=== PATIENT | male | born 1975 | race Caucasian/White ===

== ENCOUNTER → 2021-01-24 07:54 | Outpatient (CLI) | payer OTHER, SELFPAY ==
[2021-01-24] VITALS (11 sets, daily range): BP systolic 106–120; BP diastolic 57–86; PULSE 61–108; RESP 15–21; TEMP 36.5; O2SAT 77–100; BMI 22.6
--- NOTE | 2021-01-24 | ASPIGT_PTH ---
PATIENT: SUDEEP KNAPP LOC: [place] U#:[id number] AGE/SX: 50/M ROOM: RE01/24/[address]: Dr. Drew Morrison DO : 1975 BED: DIS: SPEC #: [id number] RECD: 01/24/21 09:34 STATUS: DANITZA EMIR #: [id number] CHAPO: 01/24/21 00:[address]: Drew Morrison DEPT: SURGICAL PATHOLOGY RECD BY: Lane Buitrago ENTERED: 01/24/21 09:35 SP TYPE: ASP RAD OTHR DR: Dr. Winston Smith MD Tissues: Vertebra, NOS Procedures: FNA Specimen Adequacy Special Stain Group II Surgery Specimen Level IV Imprint (control) HEADER OPERATION: CT-guided paravertebral mass biopsy PRE-OP DIAGNOSIS: Left-sided paravertebral mass L1 TISSUE SUBMITTED: Left paravertebral mass 18 gauge x5 MICROSCOPIC DIAGNOSIS Left paravertebral mass, CT-guided core biopsy: Benign peripheral nerve sheath tumor, favor schwannoma (see comment). Negative for malignancy. SJ:rg 02/01/2021 COMMENT The specimen is evaluated at the time of biopsy by Dr. Avila. 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 The specimen is sent to [facility] for expert opinion, reviewed by Dr. Yanni Velasco and the above diagnosis is rendered. Immunohistochemistry ([id number]) performed here and also additional immunohistochemical stains performed at [facility] supports the above diagnosis. The complete report is viewable in the patient's EMR. This case was reviewed and diagnosis discussed with Dr. Drew Morrison on 02/02/[address] Calixto. Case has been reviewed in consultation with Dr. Calixto who concurs with the above diagnosis. IDC:AM MICROSCOPIC DESCRIPTION Slides are reviewed. GROSS DESCRIPTION Received in fixative is one container labeled with the patient's name and designated left paravertebral mass. The specimen consists of multiple irregular fragments of hussein soft tissue that in aggregate measure 2.5 x 0.3 x 0.1 cm. The specimen is totally submitted in one cassette. Two touch imprints are prepared at the time of core biopsy. / ELI:kirill 01/24/21 TC:1 CPT: 35557, 60262
--- NOTE | 2021-01-24 | IMM_PTH ---
PATIENT: SUDEEP KNAPP LOC: CT U#:[id number] AGE/SX: 50/M ROOM: RE01/24/[address]: Dr. Drew Morrison DO : 1975 BED: DIS: SPEC #: [id number] RECD: 01/25/21 11:15 STATUS: DANITZA REQ #: [id number] CHAPO: 01/24/21 00:[address]: Drew Morrison DEPT: IMMUNOHISTOCHEMISTRY RECD BY: Linda Davis ENTERED: 01/25/21 11:17 SP TYPE: IMMUNO OTHR DR: Dr. Winston Smith MD Tissues: Vertebra, NOS Procedures: SMA (add) CD31 (add) CD34 (add) CD45 (add) CK5-6 (add) CK8 (add) DESMIN (add) KI-67 (add) Vimentin (add) FACTOR VIII (add) Pankeratin (initial) MELAN-A (add) P40 (add) S-100 (add) PHYSICIAN & [address] [address] SPECIMEN INFORMATION: Tissue Source: Left paravertebral mass, biopsy Clinical Info: Left-sided paravertebral mass L1 Specimen Number: [id number] CPT code: 03055, 01904 x13 METHODOLOGY: Deparaffinized sections of prefer/formalin-fixed tissue or PAP/DQ stained slides are incubated with monoclonal/polyclonal antibodies/oligonucleotide probes. Localization is made via biotin free immunoperoxidase method. Appropriate controls are performed and reacted as expected. Results on target cell population are indicated in the following table: RESULTS: ANTIBODY / CLONE RESULT AE1-3 (AE1/AE3/PCK26) negative CK8 (95fymgY74) negative CD45 (RP2/18) negative Vimentin (V9) positive CD31 (BRANDEE/70A) negative, focally positive Factor VIII (R Ag) negative CD34 (QBEnd-10) negative Actin (1A4) negative Desmin (CE-R-11) negative Melan A (A103) negative S-100 (4C4.9) positive CK5-6 (D5 & 1684) negative P40 (BC28) negative Ki-67 (30-9) positive, low (1%) These tests were developed and their performance characteristics determined by [facility]. They may not have been cleared or approved by the U.S. Food and Drug Administration. The FDA has determined that such clearance or approval is not necessary. The above immunohistochemical/dualISH markers are ordered and reviewed by the Pathologist. INTERPRETATION: Left paravertebral mass, CT-guided core biopsy: Benign peripheral nerve sheath tumor, favor schwannoma. See comment. ELI:kirill 02/01/2021 Comment: Immunohistochemical stains performed here and additional stains performed at [facility] supports the above diagnosis. The specimen is sent to [facility] for expert opinion, reviewed by Dr. Yanni Velasco and the above diagnosis is rendered. The complete report is viewable in the patient's EMR. Case has been reviewed in consultation with Dr. Calixto who concurs with the above diagnosis. IDC:ELVIE
--- NOTE | 2021-01-24 07:56 | CT_ITS ---
HISTORY:left sided paravertebral mass of L1. TECHNIQUE: Helically acquired images were obtained of the lumbar spine. 2D reformats were reviewed. A radiation dose optimization technique was used for this scan. IV Contrast dosage and agent: 100 mL Isovue 300. # of images incl. paperwork: 253. COMPARISON: XR 01/10/2021. FINDINGS: VERTEBRAE:5 lumbar vertebral bodies. Vertebral body heights maintained. Posterior elements intact. No osteoblastic or osteolytic lesion. ALIGNMENT:No significant anterior or posterior subluxation. INTERVERTEBRAL DISCS: Mild posterior disc protrusion at L5-S1 without significant central canal stenosis. SOFT TISSUES: 2.2 x 2.6 x 2.8 cm oval mass in the left posterior musculature at the L1 level. Mild central enhancement slightly hyperdense to muscle with surrounding hypodensity relative to muscle. Fatty capping at the superior and inferior poles of the mass, which can be seen with nerve sheath tumor or myxoma. CT/Spine Lumbar WITH Contrast IMPRESSION: 2.8 cm left posterior intramuscular mass at the L1 level as above. No evidence for acute osseous abnormality in the lumbar spine. Individualized dose optimization techniques were used for this CT. at 1258 Reported and signed by: Ct Castillo MD Electronically Signed: Ct Castillo MD at 12:37 EDT Tel , Service support ,
--- NOTE | 2021-01-24 07:56 | CT_ITS ---
PROCEDURE: CT GUIDED biopsy of the left paraspinal mass. DATE: 01/24/2021. INDICATION: Male, 45 years old. Soft tissue mass in the left paraspinal muscles. PHYSICIAN: Mark Almanza M.D. RADIATION DOSAGE (If Supplied By Facility): CTDIvol = ( 8.4 ) mGy, DLP = ( 590.42 ) mGycm. Individualized dose optimization techniques were utilized. PROCEDURE: The risks, benefits, and alternatives to the procedure were explained to the patient. The specific risk of hemorrhage requiring further treatment or intervention was detailed and accepted. Follow-up instructions were discussed with the patient as well. Written informed consent was obtained. The patient was brought into the CT suite and placed in the prone position. . An appropriate entry site was identified. The overlying skin was prepped and draped in the usual sterile fashion. 1% lidocaine was administered subcutaneously for local anesthesia. Conscious sedation was performed. The patient received 2 mg of VERSED and 50 mcg of FENTANYL intravenously. Conscious sedation was started at 8:57 AM and terminated at 9:16 AM. The patient was monitored by the department nurse. Under CT guidance, a total of 5 passes were performed utilizing a 18-gauge core biopsy needle. The specimens were then placed in the appropriate fluid and transported to the laboratory for analysis. Hemostasis was obtained. The patient tolerated the procedure well without immediate complications. CT/Biopsy/Inj or Needle Placement IMPRESSION: Successful CT guided biopsy of the left paraspinal mass, as described above. The conscious sedation protocol was followed. Electronically Signed: Mark Almanza MD at 9:46 EDT , Service support ,
[2021-01-24] MEDS: Midazolam 2 MG/2 ML Syringe IV (08:57)
[2021-01-24] MEDS: fentaNYL 100 MCG/2 ML Ampul IV (08:59)
[2021-01-24] MEDS: Lidocaine 2% (20 ml mdv) 20 ML Vial INFILT (09:02)
== END | disposition home or self-care (01) ==
PROVIDERS: PCP Family Medicine; Referring Provider Orthopaedic Surgery; Visit Provider Orthopaedic Surgery
DX: D36.17 Benign neoplasm of peripheral nerves and autonomic nervous system of trunk, unspecified (principal)
CPT/HCPCS: 20206; 72132; 77012; 88172; 88305; 88313; 88341; 88342; 99156; 99157; J7040; Q9967; A4216

== ENCOUNTER 2021-07-12 05:32 | Day surgery (SDC) | payer SELFPAY, OTHER ==
--- NOTE | 2021-07-04 13:24 | EKG12_ITS ---
Test Reason : PRE OP Blood Pressure : / mmHG Vent. Rate : 084 BPM Atrial Rate : 084 BPM P-R Int : 148 ms QRS Dur : 088 ms QT Int : 342 ms P-R-T Axes : 076 041 059 degrees QTc Int : 404 ms Normal sinus rhythm Normal ECG Confirmed by SHANNA CABA, AILYN ([id number]), technical writer and editor STEPHEN MOREIRA ([id number]) on 07/05/2021 9:25:18 AM Referred By: Drew Morrison Confirmed By:AILYN OTERO MD
[2021-07-04 14:23] LABS: Absolute Lymphocyte Count 1.48 X10^3/uL (0.83-4.51); Absolute Neutrophil Count 4.7 X10^3/uL (2.0-7.7); Basophil# 0.04 X10^3/uL; Basophil% 0.6 % (0-1); Eosinophil# 0.11 X10^3/uL; Eosinophils% 1.6 % (0-5); Hematocrit 44.9 % (40-54); Hemoglobin 15.2 g/dL (13.0-16.5); Lymphocyte # 1.48 X10^3/ul (0.83-4.51); Lymphocyte % 21.8 % (19-41); Mean Corp Hgb Conc 33.9 g/dL (32-36); Mean Corpuscular Hgb 29.6 pg (27.0-32.0); Mean Corpuscular Volume 87.5 fL (80-94); Mean Platelet Vol. 8.3 fl (6.2-12.0); Monocyte# 0.45 X10^3/uL; Monocyte% 6.6 % (0-10); NRBC Flagged by Analyzer 0 % (0-5); Neutrophil % 69.1 % (47-70); Platelet Count 318 K/mm3 (150-450); RBC Distribution Width CV 12.5 % (11.6-14.6); RBC Distribution Width SD 39.9 fl (35.1-43.9); Red Blood Count 5.13 M/mm3 (4.6-6.2); White Blood Count 6.8 K/mm3 (4.4-11.0)
[2021-07-04 14:35] LABS: Magnesium 2.1 mg/dL (1.6-2.6)
[2021-07-04 14:40] LABS: Anion Gap 7 (5-15); BUN 21 mg/dL (7-18); BUN/Creat Ratio 18.4 RATIO (10-20); Calcium,Total 9.1 mg/dL (8.5-10.1); Chloride 103 mmol/L (98-107); Creatinine, Serum 1.14 mg/dL (0.70-1.30); EST Glomerular Filtration Rate 74 mL/min (>60); Est Glom Filt Rate - Afr Amer 90 mL/min (>60); Glucose 128 mg/dL (74-106); Potassium 3.6 mmol/L (3.5-5.1); Sodium Level 138 mmol/L (136-145)
[2021-07-04 15:18] LABS: HIV - WCH Non-Reactive (Nonreactive); Hepatitis B Surface Antibody Non-Reactive; Hepatitis C Antibody Non-Reactive (Nonreactive)
[2021-07-06 10:41] LABS: Hepatitis A AB, Total Negative (Negative)
--- NOTE | 2021-07-11 12:14 | PCM.HP.BLA ---
History and Physical Date of Admission: 07/12/21 [facility] [id number] [phone] OFFICE VISITDate of Service: 01/10/21 MR#:[id number]:[id number]: SUDEEP KNAPP [facility] #:[id number]:1975 Provider:Dr. Drew Morrison DOAge/Sex: 45/M [place] [place] Intake Intake Visit Reasons: Lumbar spine Allergies No Known Allergies Allergy (Verified 01/10/21 13:10) Medications calcium carbonate 500 mg calcium (1,250 mg) tablet 500 mg PO DAILY 01/10/21 [History Confirmed 01/10/21] ibuprofen 200 mg capsule 200 mg PO Q6H PRN 01/10/21 [History Confirmed 01/10/21] magnesium 200 mg tablet 200 mg PO DAILY 01/10/21 [History Confirmed 01/10/21] multivitamin with iron 1 tab PO DAILY 01/10/21 [History Confirmed 01/10/21] PFSH Surgical History Hx of hernia repair HPI Lumbar spine Details: Parts of this documentation were recorded by a scribe, this documentation accurately reflects the service provided and the decisions made by me, Dr. Drew Morrison DO 01/10/21 3565. SUDEEP KNAPP is a 45 year old M here today for Robby is a most pleasant young man 45 years old who presents in the company of his . Her name is Orelkin. Dr. Smith sent him to see me because an incidental finding on an MRI scan of his lumbar spine. The incidental finding was a mass in his left paravertebral musculature around the L1-L2 area. The patient states that he knows it has been there for quite a while perhaps even 2 or 3 years. He thinks that is probably gotten bigger. He denies any pain in the area. He does have low back pain but his lower down. He denies any lower extremity symptomatology. He denies bowel or bladder dysfunction. He denies history of unexplained weight loss night fever sweats or chills. On examination he is neurologically intact and both lower extremities with normal reflexes and no pain with extension or flexion of his lumbar spine. I can feel the mass which is just mildly tender. I explained to them that we need to know what the mass is. Because it has been there 2 or 3 years that he knows of it is more than likely some type of benign mass. However there is always a possibility of malignancy such as a fibromyxoid sarcoma, a leiomyosarcoma or a myosarcoma. I discussed the case with Dr. Wilson at the hospital and he recommended a contrast CT of the mass along with a CT directed needle biopsy. After that we can make a decision as to whether it even needs to come out depending on the biopsy findings. I will see him soon as that is done and make further recommendations. 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
[2021-07-12] VITALS (7 sets, daily range): BP systolic 94–117; BP diastolic 70–81; PULSE 58–86; RESP 16–18; TEMP 36.1–36.4; O2SAT 95–100; BMI 24.5
--- NOTE | 2021-07-12 | IMM_PTH ---
PATIENT: SUDEEP KNAPP [place] [facility] [place][id number] AGE/SX: 46/M ROOM: RE07/12/[address]: Dr. Drew Morrison DO : 1975 BED: DIS: 07/12/2021 SPEC #: [id number] RECD: 07/14/21 12:30 STATUS: DANITZA REShalom #: [id number] CHAPO: 07/12/21 00:[address]: Drew Morrison DEPT: IMMUNOHISTOCHEMISTRY RECD BY: Linda Davis ENTERED: 07/14/21 12:32 SP TYPE: IMMUNO OTHR DR: Dr. Winston Smith MD Tissues: Vertebra, NOS Procedures: SMA (add) CALPONIN-1 (add) CD31 (add) CD34 (add) CK8 (add) DESMIN (add) KI-67 (add) Vimentin (add) FACTOR VIII (add) Pankeratin (initial) MELAN-A (add) S-100 (add) PHYSICIAN & [address] [address] SPECIMEN INFORMATION: Tissue Source: Left lumbar/paravertebral mass, excisional biopsy Clinical Info: Left lumbar/paravertebral mass Specimen Number: [id number] #4 CPT code: 71078, 43095 x11 METHODOLOGY: Deparaffinized sections of prefer/formalin-fixed tissue or PAP/DQ stained slides are incubated with monoclonal/polyclonal antibodies/oligonucleotide probes. Localization is made via biotin free immunoperoxidase method. Appropriate controls are performed and reacted as expected. Results on target cell population are indicated in the following table: RESULTS: ANTIBODY / CLONE RESULT Block 4 AE1-3 (AE1/AE3/PCK26) negative CK8 (69zskcG04) negative Vimentin (V9) positive Calponin-1 (HF691L) negative CD31 (BRANDEE/70A) negative Factor VIII (R Ag) negative CD34 (QBEnd-10) negative Actin (1A4) negative Desmin (CE-R-11) negative Melan A (A103) negative S-100 (4C4.9) positive Ki-67 (30-9) positive, ~1% These tests were developed and their performance characteristics determined by [facility]. They may not have been cleared or approved by the U.S. Food and Drug Administration. The FDA has determined that such clearance or approval is not necessary. The above immunohistochemical/dualISH markers are ordered and reviewed by the Pathologist. INTERPRETATION: Left lumbar/paravertebral mass, excisional biopsy: Benign peripheral nerve sheath tumor, favor schwannoma. SJ:kirill 07/15/2021 Case has been reviewed in consultation with Dr. Calixto who concurs with the above diagnosis. IDC:AM
--- NOTE | 2021-07-12 | MASS_PTH ---
PATIENT: SUDEEP KNAPP [place] [facility] [place][id number] AGE/SX: 46/M ROOM: RE07/12/[address]: Dr. Drew Morrison DO : 1975 BED: DIS: 07/12/2021 SPEC #: [id number] RECD: 07/12/21 12:36 STATUS: DANITZA EMIR #: [id number] CHAPO: 07/12/21 00:[address]: Drew Morrison DEPT: SURGICAL PATHOLOGY RECD BY: Lane Buitrago ENTERED: 07/12/21 12:37 SP TYPE: Mass OTHR DR: Dr. Winston mSith MD Tissues: Vertebra, NOS Procedures: Surgery Specimen Level V HEADER OPERATION: ERAS, excisional biopsy paravertebral mass, lumbar 1, presumptive schwannoma PRE-OP DIAGNOSIS: Lumbar spine tumor TISSUE SUBMITTED: Left lumbar 1 paravertebral muscle mass, presumptive schwannoma MICROSCOPIC DIAGNOSIS Left lumbar/paravertebral mass, excisional biopsy: Benign peripheral nerve sheath tumor, favor schwannoma. See comment. ELI:kirill 07/15/2021 COMMENT Immunohistochemistry ([id number]) supports the above diagnosis. The tumor appears to be completely excised. Skeletal muscle tissue is also noted at the peripheral portion of the specimen. Please make reference to previous specimen ([id number]) left paravertebral mass, CT-guided core biopsy with diagnosis of ?benign peripheral nerve sheave tumor, favor schwannoma.? Case has been reviewed in consultation with Dr. Calixto who concurs with the above diagnosis. IDC:AM MICROSCOPIC DESCRIPTION Slides are reviewed. GROSS DESCRIPTION Received in fixative is one container labeled with the patient's name and designated left lumbar/ paravertebral mass, presumptive schwannoma/muscle. The specimen consists of a nodular piece of hussein soft tissue measuring 4 x 2.5 x 2 cm. No orientation is provided. The specimen is inked, serially sectioned and reveal hussein-white to slightly yellowish solid cut surfaces. Areas of hemorrhage, necrosis or cystic degeneration are not identified. The entire specimen is submitted in nine cassettes from end to another end. / ELI:kirill 07/13/2021 TC:1 CPT: 65847
[2021-07-12] MEDS: Acetaminophen 500 MG Tablet 1000 MG PO (06:37)
[2021-07-12] MEDS: Lactated Ringers 1,000 ML 15 ML IV (06:43)
[2021-07-12 06:50] LABS: Bedside Glucose 71 mg/dL (70-110)
[2021-07-12] MEDS: Cefazolin 2 GM in 0.9% Normal Saline 100 ML IV (07:23)
[2021-07-12] MEDS: THROMBIN (RECOMBINANT) 20,000 UNIT VIAL 20000 UNIT TOPICAL (08:00)
--- NOTE | 2021-07-12 10:04 | EX.PCM.DISCH ---
Discharge Instructions Diet Discharge Diet: No restrictions Activity Discharge Activity: May Not Drive (while taking narcotic pain medications.) May shower in (days): 1 Ice area for (Minutes): 20 (Ice area for 20 minutes each hour while awake) Weight Bearing Status: Weight bearing as tolerated Dressing / Incision Call your doctor if your incision/area has: Continuous Slow Oozing, Sudden Increased Bleeding, Increased Pain/ Swelling, Increased Redness and Foul Smelling Discharge Call your doctor if you observe: Fever of 101 or Higher, Coldness, Increased Pain, Numbness or Tingling and Change in Color Follow Up Care Test Results: Test results from this visit will be discussed in further detail at your follow-up appointment, if applicable. Discharge Plan Admission Primary Reason for Your Visit: Removal Mass lumbar spine Attending Provider: Drew Morrison Primary Care Provider: Winston Smith Discharge Orders/Prescriptions Prescriptions: New hydrocodone-acetaminophen 7.5-325 mg tablet 1 tab PO Q6H PRN (Reason: pain) 7 Days Qty: 30 RF: 0 Continued ibuprofen 200 mg capsule 200 mg PO Q6H PRN (Reason: Pain) RF: 0 calcium 600 mg Capsule 600 mg PO DAILY RF: 0 ferrous sulfate [iron] 325 mg (65 mg iron) Tablet 325 mg PO DAILY RF: 0 cholecalciferol (vitamin D3) [Vitamin D3] 50 mcg (2,000 unit) Capsule 50 mcg PO DAILY RF: 0 Mobility 1 tab PO/SL DAILY RF: 0 Probiotic 3 billion cell Capsule 3,000 mmu cells PO DAILY RF: 0 [place] 3-6-9 1,200 mg Capsule 1 cap PO DAILY RF: 0 Referrals / Follow Up: Winston Smith MD [Primary Care Provider] - Drew Morrison DO [STAFF PHYSICIAN] - Within 2 Weeks Disposition Disposition (needs filled in before D/C Order can be placed): Home, Self Care
--- NOTE | 2021-07-12 10:12 | PCM.OPRPT ---
Report of Operation Date of Procedure: 07/12/21 Description of Surgical Findings:: Preoperative diagnosis: Presumptive schwannoma paravertebral muscles lumbar spine Postoperative diagnosis: The same Procedure: Excisional biopsy of schwannoma lumbar spine CPT code 06318 Surgeon: Dr. Morrison assistant reading teacher: Carolina Watts NP Anesthesia: General endotracheal anesthesia administered by [facility] EBL: Minimal Drains: None Complications: None Procedure: Patient was taken to the OR where he was placed under general endotracheal anesthesia. He was then placed in the prone position on the Earnest frame. Note that a Mendoza catheter had already been inserted. The back was prepped and draped in standard fashion. Then made a longitudinal incision directly over the mass that was quite deep in the muscle. Subcutaneous tissues were incised the length of the incision. Then opened the lumbar fascia longitudinally and did part of my dissection bluntly. This was all the way down to the tumor. The tumor was identified and had a thin capsule around it and had quite a few adhesions to the paravertebral muscles surrounding it. Slowly dissected using blunt dissection mostly with tissue scissors around the mass until I removed the entire tumor in 1 piece without violating the capsule. The tumor was about 5 cm x 4 cm. This was then sent to pathology. Bleeders in the muscle were controlled with thrombin-soaked Gelfoam. Cautery was also used. Thorough irrigation was then carried out. Then approximated the muscle with 2-0 Vicryl this also tamponade of some of the vessels. Was done in running fashion with the 2-0 Vicryl. We then closed the subcutaneous tissues with 2-0 Vicryl in interrupted fashion also. The skin was approximated using skin clips. Sterile dressings were then applied. The patient tolerated the procedure well was recovered in the OR moved to his transfer cart and taken to recovery in satisfactory condition. This is the end of operative summary on James Mack. This is Dr. Morrison dictating.
[2021-07-12] MEDS: oxyCODONE 5 MG Tablet PO (10:50)
--- NOTE | 2021-08-03 16:42 | PCM.HP.BLA ---
History and Physical Date of Admission: 07/12/21 [facility] [id number] [phone] OFFICE VISITDate of Service: 01/10/21 MR#:[id number]: SUDEEP KNAPP [facility] #:[id number]:1975 Provider:Dr. Drew Morrison DOAge/Sex: 45/M [place] [place] Intake Intake Visit Reasons: Lumbar spine Allergies No Known Allergies Allergy (Verified 01/10/21 13:10) Medications calcium carbonate 500 mg calcium (1,250 mg) tablet 500 mg PO DAILY 01/10/21 [History Confirmed 01/10/21] ibuprofen 200 mg capsule 200 mg PO Q6H PRN 01/10/21 [History Confirmed 01/10/21] magnesium 200 mg tablet 200 mg PO DAILY 01/10/21 [History Confirmed 01/10/21] multivitamin with iron 1 tab PO DAILY 01/10/21 [History Confirmed 01/10/21] PFSH Surgical History Hx of hernia repair HPI Lumbar spine Details: Parts of this documentation were recorded by a scribe, this documentation accurately reflects the service provided and the decisions made by me, Dr. Drew Morrison DO 01/10/21 1003. SUDEEP KNAPP is a 45 year old M here today for Robby is a most pleasant young man 45 years old who presents in the company of his . Her name is Orelkin. Dr. Smith sent him to see me because an incidental finding on an MRI scan of his lumbar spine. The incidental finding was a mass in his left paravertebral musculature around the L1-L2 area. The patient states that he knows it has been there for quite a while perhaps even 2 or 3 years. He thinks that is probably gotten bigger. He denies any pain in the area. He does have low back pain but his lower down. He denies any lower extremity symptomatology. He denies bowel or bladder dysfunction. He denies history of unexplained weight loss night fever sweats or chills. On examination he is neurologically intact and both lower extremities with normal reflexes and no pain with extension or flexion of his lumbar spine. I can feel the mass which is just mildly tender. I explained to them that we need to know what the mass is. Because it has been there 2 or 3 years that he knows of it is more than likely some type of benign mass. However there is always a possibility of malignancy such as a fibromyxoid sarcoma, a leiomyosarcoma or a myosarcoma. I discussed the case with Dr. Wilson at the hospital and he recommended a contrast CT of the mass along with a CT directed needle biopsy. After that we can make a decision as to whether it even needs to come out depending on the biopsy findings. I will see him soon as that is done and make further recommendations. 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
== END 2021-07-12 23:59 | disposition home or self-care (01) ==
LOC: SDC 05:33 → AC 05:34
PROVIDERS: Anesthesiology; PCP Family Medicine; Referring Provider Orthopaedic Surgery; Visit Provider Orthopaedic Surgery
PROC: (CPT 63030; principal; 2021-07-12 07:00)
DX: D36.17 Benign neoplasm of peripheral nerves and autonomic nervous system of trunk, unspecified (principal); Z20.822 Contact with and (suspected) exposure to COVID-19
CPT/HCPCS: 21931; 00300; 36415; 80048; 82962; 83735; 85025; 86703; 86706; 86708; 86803; 87081; 87426; 88305; 88307; 88341; 88342; 93005; J7120; J2405